=== PATIENT | female | born 2000 | race Caucasian/White ===

== ENCOUNTER 2022-03-18 19:44 | Emergency (ER) | payer OTHER, SELFPAY ==
--- NOTE | 2022-03-18 19:46 | ED.DENTAL ---
HPI - Dental/Oral General Chief complaint: Dental/Oral Stated complaint: Toothache Time Seen by Provider: 03/18/22 19:45 Source: patient Mode of arrival: ambulatory Limitations: no limitations History of Present Illness HPI Narrative: Ms. trinh is a to the clinic today with complaints of dental pain that began at 5:00 this evening. She reports she lost a filling to that tooth approximately 2 days ago. Reports pain to the right upper second to last molar-#2. Related Data Home Medications Medication Instructions Recorded Confirmed amitriptyline 25 mg PO HS 03/18/22 03/18/22 desogestrel-ethinyl estradiol 1 tablet PO DAILY 03/18/22 03/18/22 [Isibloom] Allergies Allergy/AdvReac Type Severity Reaction Status Date / Time No Known Allergies Allergy Verified 03/18/22 19:48 Review of Systems Review of Systems: Pertinent positives per HPI. Patient denies any fever, chills, rash, headache, visual changes, dizziness, cough, runny nose, sore throat, shortness of breath, chest pain, palpitations, nausea, vomiting, diarrhea, constipation, abdominal pain, or any urinary issues. PMFSH Comments At the time of my signature, I reviewed and agree with the nursing past medical, surgical, social, and family history. There is no relevant family history pertinent to the patient complaint. Exam Narrative: General: Well-developed, well nourished, in no apparent distress Head: Normocephalic, atraumatic Mouth: Oropharynx without lesions or masses, poor dentition, dental carries with inflammation to #2 tooth, MMM. Neck: Supple, trachea midline, no enlargement of anterior or posterior cervical nodes, no thyroid masses or goiter palpable. Cardio: Regular rate and rhythm, s1 and s2 normal, no murmur appreciated. Resp: Clear to auscultation bilaterally anteriorly and posteriorly, no rhonchi, rales, wheezing or rubs Course Course Emergency Course: Portions of this record may have been created with voice recognition software. Level of Care: Express Care Visit Vital Signs Vital signs: Vital signs reviewed MDM - Dental/Oral MDM Narrative Medical decision making narrative: At the time of visit patient is resting comfortably on the exam table. Having pain to the right upper back tooth #2. Obvious cavity in this tooth with redness around the gum. I will treat for tooth ache/dental infection and give her a prescription for amoxicillin for 10 days. She is to follow-up with a dentist as soon as possible. She voiced understanding of discharge instructions. Differential Diagnosis Differential diagnosis: Likely gingival abscess, dental caries, toothache, dental abscess, fracture of tooth and aphthous ulcer Discharge Plan Discharge Clinical Impression: Toothache, Dental caries Patient Disposition: Home, Self-Care Condition: Stable Instructions: Antibiotic Form, Toothache (ED) Additional Instructions: Amoxicillin as prescribed Tylenol/Motrin as needed for pain or fever May use heating pad to the affected area to help alleviate pain Follow-up with your dentist as soon as possible Prescriptions: New amoxicillin 500 mg capsule 500 mg PO Q8H 10 Days Qty: 30 RF: 0 No Action desogestrel-ethinyl estradiol [Isibloom] 0.15-0.03 mg Tablet 1 tablet PO DAILY RF: 0 amitriptyline 25 mg Tablet 25 mg PO HS RF: 0 Follow-up/Referrals: Pipo,Piotr Perez MD [Primary Care Provider] - Time of Disposition: 19:51 Quality NIHSS Nursing Documentation ED NIHSS nursing documentation: reviewed/agree
[2022-03-18 19:50] VITALS: BP 136/84; PULSE 86; RESP 14; TEMP 36.8; O2SAT 100
== END 2022-03-18 19:54 | disposition home or self-care (01) ==
PROVIDERS: Emergency Provider Nurse Practitioner Family; PCP Family Medicine
DX: K02.9 Dental caries, unspecified (principal)
CPT/HCPCS: 99213; G0463